=== PATIENT | female | born 1990 | race Caucasian/White ===

== ENCOUNTER 2017-06-04 09:17 | Outpatient (CLI) | payer MEDICAID | END 2017-06-04 12:15 | disposition home or self-care (01) | LOC: OBT 09:17 → L-D 09:18 → OBT 12:15 | DX: O62.9 Abnormality of forces of labor, unspecified (principal); Z3A.40 40 weeks gestation of pregnancy | CPT/HCPCS: 76815; 76818 ==

== ENCOUNTER 2017-06-07 10:43 | Inpatient (IN) | payer MEDICAID ==
[2017-06-07] MEDS ORDERED: LACTATED RINGER'S 1,000 ML IV (13:10)
[2017-06-07 13:20] LABS: ADD MAN DIFF? NO
[2017-06-07 13:22] LABS: BASOPHILS % 0.2 % (0.0-2.0); EOSINOPHILS % 0.4 % (0.0-7.0); HEMOGLOBIN 10.3 g/dl (12.0-16.0); LYMPHOCYTES # 1.7 10^3/ul (0.8-2.9); LYMPHOCYTES % 19.7 % (15.0-51.0); MEAN CORPUSCULAR HEMOGLOBIN 26.4 pg (29.0-33.0); MEAN CORPUSCULAR HGB CONC 33.2 g/dl (32.0-37.0); MEAN CORPUSCULAR VOLUME 79.5 fl (82.0-101.0); MONOCYTE # 0.7 10^3/ul (0.3-0.9); MONOCYTES % 7.6 % (0.0-11.0); NEUTROPHIL # 6.1 10^3/ul (1.6-7.5); NEUTROPHILS % 71.7 % (39.0-77.0); PLATELET COUNT 301 10^3/UL (140-415); RED CELL DISTRIBUTION WIDTH 14.3 % (11.5-14.5)
[2017-06-07 13:22] LABS: WHITE BLOOD COUNT 8.5 10^3/ul (4.8-10.8)
[2017-06-07 13:25] LABS: INR 0.92; PROTIME 12.4 Sec (11.9-14.9)
[2017-06-07 13:26] LABS: PARTIAL THROMBOPLASTIN TIME 25.4 Sec (25.0-35.0)
[2017-06-07] MEDS ORDERED: CARBOPROST 250 MCG INJ IM ×2 (13:30→21:30)
[2017-06-07] MEDS ORDERED: METHYLERGONOVINE 0.2 MG INJ IM ×2 (13:30→21:30)
[2017-06-07] MEDS ORDERED: MISOPROSTOL 200 MCG TAB PR ×2 (13:30→21:30)
[2017-06-07] MEDS ORDERED: LIDOCAINE 1% (MPF) 30 ML INJ INJ (13:30)
[2017-06-07] MEDS ORDERED: IBUPROFEN 600 MG TAB PO (13:30)
[2017-06-07] MEDS ORDERED: OXYTOCIN 30 UNITS/LR 500 ML IV ×3 (13:30→21:30)
[2017-06-07] MEDS ORDERED: BUTORPHANOL 2 MG INJ IV ×2 (13:30)
[2017-06-07] MEDS: LACTATED RINGER'S 1,000 ML IV ×2 (14:21)
[2017-06-07] MEDS ORDERED: FENTAnyl 2MCG/ML-ROPIV 0.2% 100 ML (18:20)
[2017-06-07] MEDS: OXYTOCIN 30 UNITS/LR 500 ML IV ×2 (21:16→21:17)
[2017-06-07] MEDS ORDERED: OXYCODONE/ASPIRIN (4.88/325) TAB PO (21:30)
[2017-06-07 22:15] LABS: RAPID PLASMA REAGIN NONREACTIVE (NR)
[2017-06-07] MEDS: LANOLIN 7 GM TUBE TOP (23:36)
[2017-06-07] MEDS: IBUPROFEN 600 MG TAB PO (23:36)
[2017-06-07] MEDS: BENZOCAINE 20% 56 ML SPRAY TOP (23:36)
[2017-06-08] MEDS: LACTATED RINGER'S 1,000 ML IV* (01:35)
[2017-06-08] MEDS: IBUPROFEN 600 MG TAB PO ×3 (05:45→18:00)
[2017-06-08 06:55] LABS: ADD MAN DIFF? NO
[2017-06-08 07:01] LABS: WHITE BLOOD COUNT 10.2 10^3/ul (4.8-10.8)
[2017-06-08 07:01] LABS: BASOPHILS % 0.2 % (0.0-2.0); EOSINOPHILS % 0.2 % (0.0-7.0); HEMATOCRIT 24.8 % (37.0-47.0); LYMPHOCYTES # 1.7 10^3/ul (0.8-2.9); LYMPHOCYTES % 16.8 % (15.0-51.0); MEAN CORPUSCULAR HEMOGLOBIN 25.8 pg (29.0-33.0); MEAN CORPUSCULAR HGB CONC 32.3 g/dl (32.0-37.0); MEAN PLATELET VOLUME 11.9 fl (7.4-10.4); MONOCYTE # 0.9 10^3/ul (0.3-0.9); MONOCYTES % 8.4 % (0.0-11.0); NEUTROPHIL # 7.5 10^3/ul (1.6-7.5); PLATELET COUNT 238 10^3/UL (140-415); RED CELL DISTRIBUTION WIDTH 14.6 % (11.5-14.5)
[2017-06-08] MEDS: INFLUENZA VIRUS VACCINE 0.5 ML (DISPENSING) IM* (12:18)
[2017-06-09] MEDS: IBUPROFEN 600 MG TAB PO ×3 (00:37→12:23)
[2017-06-09] MEDS: DIPHTH/TET/ACEL PERTUSS (ADULT) 0.5 ML VIAL IM* (12:22)
[2017-06-10] MEDS ORDERED: INFLUENZA VIRUS VACCINE 0.5 ML (DISPENSING) IM* (09:00)
== END 2017-06-09 18:06 | disposition home or self-care (01) | DRG 775 ==
LOC: OBT 10:43 → L-D 10:44 → OBT 11:52 → L-D 11:41 → PP1 22:36
PROVIDERS: Obstetrics & Gynecology
PROC: 10E0XZZ Delivery of Products of Conception, External Approach (ICD-10-PCS; principal; 2017-06-07)
PROC: 0KQM0ZZ Repair Perineum Muscle, Open Approach (ICD-10-PCS; 2017-06-07)
PROC: 3E033VJ Introduction of Other Hormone into Peripheral Vein, Percutaneous Approach (ICD-10-PCS; 2017-06-07)
DX: O48.0 Post-term pregnancy (principal); Z3A.40 40 weeks gestation of pregnancy; O70.0 First degree perineal laceration during delivery; Z37.0 Single live birth
CPT/HCPCS: 62319; 85025; 85610; 85730; 86592; 86900; 86901; 90686